=== PATIENT | male | born 1980 | race Caucasian/White ===

== ENCOUNTER → 2020-08-17 09:30 | Outpatient (BNVA) | payer OTHER, SELFPAY | PROVIDERS: Family Provider Nurse Practitioner; Visit Provider Nurse Practitioner Family | DX: I10 Essential (primary) hypertension (principal); E66.9 Obesity, unspecified | CPT/HCPCS: 80053; 80061; 83036; 85025 ==

== ENCOUNTER → 2020-09-13 10:10 | Outpatient (BNVA) | payer OTHER, SELFPAY | PROVIDERS: Family Provider Nurse Practitioner; Visit Provider Nurse Practitioner Family | DX: J18.9 Pneumonia, unspecified organism (principal); J06.9 Acute upper respiratory infection, unspecified | CPT/HCPCS: 87426 ==

== ENCOUNTER 2020-09-14 06:00 | Outpatient (CLI) | payer OTHER, SELFPAY ==
[2020-09-14 06:29] VITALS: BP 116/74; PULSE 104; RESP 17; TEMP 37; O2SAT 94; BMI 34.9
--- NOTE | 2020-09-14 06:36 | AMB.MCA ---
Patient Information Symptom onset date: 09/09/20 COVID 19 common symptoms: positive fever(s), chills, cough, non-productive cough, dyspnea, fatigue and body aches COVID 19 other sytmptoms: negative requiring oxygen Severity: mild Treatment prior to arrival: none Other details: 39-year-old male. Patient known to have Covid symptoms began within the last 10 days. Discussed risk benefits alternatives, patient would like to go ahead with monoclonal antibody infusion. [facility] COVID test results: SARS-CoV-2 Antigen (Rapid) Positive (Negative) H 09/13/20 10:10 09/13/20 Criteria/Plan Inclusion/Exclusion Criteria weight >/= 40kg BMI >/= 35 not requiring hospitalization, not requiring oxygen (if not chronically on oxygen) and no increase oxygen requirement (if chronically on oxygen) Patient education patient/family/caregiver received/reviewed fact sheet, Emergency Use Authorization/unapproved drug status discussed with patient/family/caregiver, alternatives to this treatment discussed with patient/family/caregiver, risks and benefits of medication reviewed with patient/family/caregiver, patient/family/caregiver given opportunity for questions, which were answered and patient consents to receiving Monoclonal Antibody Treatment Plan for treatment Meets criteria for Monoclonal Antibody infusion Ordering Monoclonal Antibody infusion for today
[2020-09-14 07:40] VITALS: BP 107/74; PULSE 107; O2SAT 92
[2020-09-14 09:19] VITALS: BP 113/81; PULSE 84; TEMP 37.1; O2SAT 94
--- NOTE | 2020-09-17 14:51 | DCPLANNER ---
real estate transaction manager had message that patient received the monoclonal antibody infusion. real estate transaction manager called and spoke with patients , she stated that patient is doing good. Patients stated that before the infusion patient had fever, headache, was tired, was nauseous. After the infusion, patient has been tired, still has a small cough, but is doing really good.
== END 2020-09-14 09:19 | disposition home or self-care (01) ==
LOC: ER 06:01
PROVIDERS: PCP Nurse Practitioner Family; Visit Provider Nurse Practitioner Family
DX: U07.1 COVID-19 (principal)
CPT/HCPCS: 96365

== ENCOUNTER → 2021-12-08 08:59 | Outpatient (BNVA) | payer OTHER, SELFPAY | PROVIDERS: PCP Nurse Practitioner Family; Visit Provider Nurse Practitioner | DX: I10 Essential (primary) hypertension (principal); E66.9 Obesity, unspecified | CPT/HCPCS: 80053; 80061; 81000 ==